=== PATIENT | female | born 2000 | race Asian ===

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

== ENCOUNTER 2023-04-22 15:21 | Outpatient (REF) | payer MEDICAID, SELFPAY | END 2023-04-22 15:22 | disposition home or self-care (01) | LOC: LBN 15:21 | PROVIDERS: Visit Provider Nurse Practitioner Family | DX: L03.317 Cellulitis of buttock (principal) | CPT/HCPCS: 87077; 87070; 87186; 87205 ==

== ENCOUNTER 2024-12-22 13:03 | Outpatient (REF) | payer BC, MEDICAID, SELFPAY ==
[2024-12-22 15:59] LABS: RBC 20-50 HPF (0-2); WBC 20-50 HPF (0-5)
== END 2024-12-22 13:04 | disposition home or self-care (01) ==
LOC: LBN 13:03
PROVIDERS: Visit Provider Physician Assistant Medical
DX: R30.0 Dysuria (principal)
CPT/HCPCS: 87077; 81015; 87086; 87186